=== PATIENT | male | born 1995 | race Caucasian/White ===

== ENCOUNTER → 2021-09-18 | Outpatient (CLI) | payer OTHER ==
--- NOTE | 2021-09-19 09:36 | SLEEP ---
DATE OF STUDY: 09/18/2021 ATTENDING PHYSICIAN: Dr. Maco Rick. The patient is 26 years old who weighs 354 pounds with a BMI of 44.2. The patient's Scott score was 11. The patient underwent home sleep study performed by [facility]. Total recording time was 504 minutes. During the night study, the patient had 45 central apneas, 1 obstructive apnea, 4 mixed apneas and 88 hypopneas. The patient's AHI was 16.5 per hour. Nocturnal oximetry study revealed a mean oxygen saturation of 92% with a lowest of 77%. 28 minutes were spent with oxygen saturation less than 90%. Mean heart rate 85 beats per minute. IMPRESSION: 1. Moderate obstructive sleep apnea at an AHI of 16.5 per hour. 2. Nocturnal hypoxia secondary to obstructive sleep apnea. RECOMMENDATIONS: 1. The patient would benefit from return to the sleep lab for CPAP titration study. Alternatively home auto-CPAP can be arranged. 2. Once the patient is optimally treated with CPAP, then follow up in 4-6 weeks to assess compliance and to document clinical improvement. 3. Weight loss is strongly advised. 4. Avoid [employer] depressants. 5. Cautioned regarding driving until symptoms of sleep apnea resolve with above recommendations. LISA DR: Marc TID: [id number] CC: MACO RICK MD
== END ==
LOC: RT 16:35
PROVIDERS: ATTEND Family Medicine
DX: G47.33 Obstructive sleep apnea (adult) (pediatric) (principal); E66.01 Morbid (severe) obesity due to excess calories; R40.0 Somnolence; R06.83 Snoring
CPT/HCPCS: G0399